=== PATIENT | female | born 1985 | race Caucasian/White ===

== ENCOUNTER 2023-01-18 12:16 | Emergency (ER) | payer MEDICAID ==
[~2023-01-18] VITALS: Ht 157.5 cm; Wt 95.2 kg
[~2023-01-18 12:16] MED LIST: CYCL-1 PO; RISP2TAB97 PO; VIBRID PO
[2023-01-18 14:01] VITALS: BP 169/106
[2023-01-18] MEDS ORDERED: AMOX-117 PO (14:50)
== END 2023-01-18 15:06 | disposition home or self-care (01) ==
LOC: ER 12:17
DX: K04.7 Periapical abscess without sinus (principal); J45.909 Unspecified asthma, uncomplicated; K21.9 Gastro-esophageal reflux disease without esophagitis; E11.9 Type 2 diabetes mellitus without complications; F31.9 Bipolar disorder, unspecified; F17.200 Nicotine dependence, unspecified, uncomplicated; Z88.1 Allergy status to other antibiotic agents; Z88.2 Allergy status to sulfonamides; Z79.899 Other long term (current) drug therapy; Z79.1 Long term (current) use of non-steroidal anti-inflammatories (NSAID); Z79.2 Long term (current) use of antibiotics
CPT/HCPCS: 99283